=== PATIENT | male | born 1995 | race Caucasian/White ===

== ENCOUNTER 2017-01-23 22:27 | Emergency (ER) | payer BC, OTHER ==
[~2017-01-23] VITALS: Ht 182.9 cm; Wt 100.0 kg
[~2017-01-23 22:27] MED LIST: CITA40 PO; TEST-25 XX
[2017-01-23 22:51] VITALS: BP 147/81; PULSE 92; RESP 16; TEMP 98.1; O2SAT 100
[2017-01-23] MEDS ORDERED: CITA40TA4 PO (22:57)
[2017-01-23] MEDS ORDERED: ADDE20 PO (22:57)
[2017-01-23 23:20] LABS: AUTOMATED NEUTROPHIL # 8.2 TH/MM3 (1.8-7.7); BASOPHIL % 0.4 % (0.0-2.0); EOSINOPHIL # 0.1 TH/MM3 (0-0.4); EOSINOPHIL % 0.6 % (0.0-4.0); HEMATOCRIT 49.8 % (39.0-51.0); HEMO FLAGS DIFF FINAL; LYMPH % 19.8 % (9.0-44.0); LYMPHOCYTE # 2.2 TH/MM3 (1.0-4.8); MEAN CELL VOLUME 86.4 FL (80.0-100.0); MEAN CORPUSCULAR HEMOGLOBIN 30.1 PG (27.0-34.0); MEAN CORPUSCULAR HGB CONC 34.8 % (32.0-36.0); MONO % 4.5 % (0.0-8.0); NEUT % 74.7 % (16.0-70.0); PLATELET COUNT 268 TH/MM3 (150-450); RED BLOOD COUNT 5.76 MIL/MM3 (4.50-5.90); RED CELL DISTRIBUTION WIDTH 13.6 % (11.6-17.2)
--- NOTE | 2017-01-23 23:31 | PD ---
HPI Chief Complaint: Psychiatric Symptoms Time Seen by Provider: 22:37 Travel History International Travel<30 days: No Contact w/Intl Traveler<30days: No Traveled to known affect area: No History of Present Illness HPI Patient is a 21 year old male presents to the ER under BA by law enforcement. Patient is accompanied by his mother and father. Patient states that he got drunk tonight and just had a momentary breakdown wherein he cut his wrists with a card boxer. Patient states he feels fine now and has no complaints. Denies si/hi to me now. Mother and father state that the patient has a history of depression and has not been taking his citalopram and instead drinking. Apparently he threatened to shoot himself in the head to "end it all" today. This is what prompted them to get the police involved. Patient apparently was very dperessed, crying tonight. Mother and father are very concerned because they cannot get him to follow up. He is apparently very low functioning. PFSH Past Medical History ADD: Yes Anxiety: Yes Depression: Yes Diminished Hearing: No Immunizations Current: Yes Tetanus Vaccination: < 5 Years Influenza Vaccination: No Past Surgical History Abdominal Surgery: Yes (HERNIA) Social History Alcohol Use: Yes Tobacco Use: Yes (dip) Substance Use: No Allergies-Medications (Allergen,Severity, Reaction): Coded Allergies: No Known Allergies (Unverified , 02/24/12) Reported Meds & Prescriptions Reported Meds & Active Scripts Active Reported Adderall (Amphetamine-Dextroamphetamine) 20 Mg Tab 20 Mg PO DAILY Avoid late evening doses. Space doses at least 4 to 6 hours if more than once/day dosing. Citalopram (Citalopram Hydrobromide) 40 Mg Tab 40 Mg PO DAILY Review of Systems Except as stated in HPI: all other systems reviewed are Neg Physical Exam Narrative GENERAL: WD/WN in nad. SKIN: Warm and dry. Superficial serial abraisons to the volar aspect of the L wrist. No other wounds seen on his person. HEAD: Atraumatic. Normocephalic. EYES: Pupils equal and round. No scleral icterus. No injection or drainage. ENT: No nasal bleeding or discharge. Mucous membranes pink and moist. NECK: Trachea midline. No JVD. CARDIOVASCULAR: Regular rate and rhythm. RESPIRATORY: No accessory muscle use. Clear to auscultation. Breath sounds equal bilaterally. GASTROINTESTINAL: Abdomen soft, non-tender, nondistended. Hepatic and splenic margins not palpable. MUSCULOSKELETAL: Extremities without clubbing, cyanosis, or edema. No obvious deformities. NEUROLOGICAL: Awake and alert. No obvious cranial nerve deficits. Motor grossly within normal limits. Five out of 5 muscle strength in the arms and legs. Normal speech. PSYCHIATRIC: Mood: Fine, Affect happily intoxicated. Denies SI or HI to me. Data Data Last Documented VS Vital Signs Date Time Temp Pulse Resp B/P Pulse Ox O2 Delivery O2 Flow Rate FiO2 01/23/17 22:51 98.1 92 16 147/81 100 Orders Complete Blood Count With Diff (01/23/17 22:57) Comprehensive Metabolic Panel (01/23/17 22:57) Psych Screen (01/23/17 22:57) Drug Screen, Random Urine (01/23/17 22:57) Alcohol (Ethanol) (01/23/17 22:57) Labs Laboratory Tests Test 01/23/17 01/23/17 23:00 23:45 White Blood Count 11.0 TH/MM3 Red Blood Count 5.76 MIL/MM3 Hemoglobin 17.3 GM/DL Hematocrit 49.8 % Mean Corpuscular Volume 86.4 FL Mean Corpuscular Hemoglobin 30.1 PG Mean Corpuscular Hemoglobin 34.8 % Concent Red Cell Distribution Width 13.6 % Platelet Count 268 TH/MM3 Mean Platelet Volume 8.3 FL Neutrophils (%) (Auto) 74.7 % Lymphocytes (%) (Auto) 19.8 % Monocytes (%) (Auto) 4.5 % Eosinophils (%) (Auto) 0.6 % Basophils (%) (Auto) 0.4 % Neutrophils # (Auto) 8.2 TH/MM3 Lymphocytes # (Auto) 2.2 TH/MM3 Monocytes # (Auto) 0.5 TH/MM3 Eosinophils # (Auto) 0.1 TH/MM3 Basophils # (Auto) 0.0 TH/MM3 CBC Comment DIFF FINAL Differential Comment Sodium Level 143 MEQ/L Potassium Level 3.6 MEQ/L Chloride Level 103 MEQ/L Carbon Dioxide Level 27.5 MEQ/L Anion Gap 13 MEQ/L Blood Urea Nitrogen 9 MG/DL Creatinine 1.12 MG/DL Estimat Glomerular Filtration 81 ML/MIN Rate Random Glucose 97 MG/DL Calcium Level 9.2 MG/DL Total Bilirubin 0.7 MG/DL Aspartate Amino Transf 56 U/L (AST/SGOT) Alanine Aminotransferase 160 U/L (ALT/SGPT) Alkaline Phosphatase 123 U/L Total Protein 8.3 GM/DL Albumin 4.7 GM/DL Ethyl Alcohol Level 185 MG/DL Urine Opiates Screen NEG Urine Barbiturates Screen NEG Urine Amphetamines Screen POS Urine Benzodiazepines Screen NEG Urine Cocaine Screen NEG Urine Cannabinoids Screen NEG MDM Medical Decision Making Medical Screen Exam Complete: Yes Emergency Medical Condition: Yes Differential Diagnosis Self mutilation, suicidal ideation with planning, Depression, intoxication. Narrative Course Patient roomed in emergency Department, coming by his mother and father. Mother is Joseph who is a nurse here on [address] concerned because the patient was here in October under very similar circumstances, at that time the patient was seen and examined and released Jean immediately. He is followed by an outpatient psychiatrist Dr. Lambert and has been prescribed citalopram but will not take it. Patient has been drinking fairly heavily tonight and cut himself boxcars. According to his mother the patient was telling her that his best friend shot himself in the head and the patient is considering shooting himself in the head as well. There are guns in the house. Mother and father are both very concerned about the patient's well-being and that they cannot get him to follow up outpatient for psychiatric help. He appears to be treating himself with alcohol at home for his depression. He is here on Mccracken act by law enforcement today. Medically cleared for psychiatric evaluation and disposition. Mother and father would like to be called to give collateral history to psychiatrist in AM. Diagnosis Primary Impression: Depression Qualified Code: F32.9 - Depression, unspecified depression type Condition: Bernabe Solis MD Jan 23, 2017 23:31
[2017-01-23 23:33] LABS: ALT (GPT) 160 U/L (12-78); ANION GAP 13 MEQ/L (5-15); AST (GOT) 56 U/L (15-37); BICARBONATE 27.5 MEQ/L (21.0-32.0); BLOOD UREA NITROGEN 9 MG/DL (7-18); CHLORIDE 103 MEQ/L (98-107); GLOMERULAR FILTRATION RATE 81 ML/MIN (>89); POTASSIUM 3.6 MEQ/L (3.5-5.1); SODIUM (NA) 143 MEQ/L (136-145)
[2017-01-23 23:36] LABS: ALKALINE PHOSPHATASE 123 U/L (45-117); TOTAL BILIRUBIN ADULT 0.7 MG/DL (0.2-1.0)
[2017-01-24 00:24] LABS: AMPHETAMINE, URINE POS (NEG); BARBITURATES, URINE NEG (NEG); COCAINE, URINE NEG (NEG)
[2017-01-24 04:07] VITALS: BP 156/86; PULSE 110; RESP 16; O2SAT 99
[2017-01-24 06:19] VITALS: BP 147/81; PULSE 110; RESP 19; O2SAT 98
[2017-01-24 11:00] VITALS: BP 132/75; PULSE 100; RESP 18
--- NOTE | 2017-01-24 13:41 | PD ---
History of Present Illness Chief Complaint: Psychiatric Symptoms Time Seen by Provider: 13:30 Travel History International Travel<30 Days: No Contact w/Intl Traveler<30days: No Known affected area: No Legal Status Legal Status: Mccracken Act M[place]racken Act Signed By: Krys Parsons History of Present Illness: This is a 21-year-old male who was Mccracken acted by law enforcement last evening for symptoms of depression and suicidality. This physician reviewed the patient 's past history here and notes that he was Mccracken acted in the past and released without admission. Apparently the patient's mother works as a nurse at this facility and was disappointed the patient was released last time, due to the fact that the patient will not follow up. Emergency room room physician's note on this occasion suggest the patient is "very low functioning". However, this physician interviewed the patient and finds that he is a student at [employer] [place] He is no longer intoxicated and vehemently denies being suicidal or homicidal. He would like to go home and his cognition is adequate for him to make informed decisions. Due to the fact the patient made these previous statements in the state of intoxication and is no longer intoxicated, denying all intention to harm himself or others, this physician feels he does not meet Mccracken act criteria or hospital admission criteria. His refusal to follow up with psychiatric treatment according to family members, is not an adequate reason to admit him to the hospital at this time. As patient is legally a competent adult , his decisions in this manner cannot be ignored. At this time the patient is calm, pleasant, cooperative, respectful and making good sense. He shows no evidence of suicidal or homicidal ideation, plan or behavior. He shows no evidence of psychotic thinking. PFSH Past Medical History Medical History: Denies Significant Hx ADD: Yes Anxiety: Yes Depression: Yes Diminished Hearing: No Immunizations Current: Yes Tetanus Vaccination: < 5 Years Influenza Vaccination: No Past Surgical History Abdominal Surgery: Yes (HERNIA) Psychiatric History Psychiatric History Hx Psychiatric Treatment: HX OF DEPRESSION, ANXIETY AND ADD. LAST [facility] ADMISSION 11/19/2016 FOR ALCOHOL INDUCED MOOD DISORDER. History of Inpatient Treatment: No Guns or firearms in home: No Social History Patient positive for amphetamines due to taking stimulants for attention deficit disorder. Hx Alcohol Use: Yes Hx Tobacco Use: Yes (dip) Hx Substance Use: Yes Substance Use Type: Alcohol, Amphetamines-Stimulants, Nicotine/Cigarettes Hx of Substance Use Treatment: No Allergies-Medications (Allergen,Severity, Reaction): Coded Allergies: No Known Allergies (Unverified , 02/24/12) Reported Meds & Prescriptions Reported Meds & Active Scripts Active Reported Adderall (Amphetamine-Dextroamphetamine) 20 Mg Tab 20 Mg PO DAILY Avoid late evening doses. Space doses at least 4 to 6 hours if more than once/day dosing. Citalopram (Citalopram Hydrobromide) 40 Mg Tab 40 Mg PO DAILY Review of Systems ROS Limitations: Clinical Condition Except as stated in HPI: all other systems reviewed are Neg Exam Alert: Yes [place]: Person, Place, Date, Situation Mood: Calm Affect: Euthymic Speech: Clear, Logical Eye Contact: Normal Memory Intact: Immediate, Recent, Remote Delusions: No Insight/Judgement Patient's insight and judgment appears to be adequate when he is not drinking. This physician is unable to hospitalize him and he should be Marchman acted by family if they feel that his drinking is causing him significant harm. [facility] Medical Decision Making Medical Record Reviewed: Yes Assessment/Plan Patient is being released as he no longer meets Mccracken act criteria and does not meet admission criteria. This physician feels if the family feels the patient acts erratically due to alcohol use or abuse, he should be [place]man acted by them. Orders Complete Blood Count With Diff (01/23/17 22:57) Comprehensive Metabolic Panel (01/23/17 22:57) Psych Screen (01/23/17 22:57) Drug Screen, Random Urine (01/23/17 22:57) Alcohol (Ethanol) (01/23/17 22:57) Diet Regular Basic (01/24/17 Breakfast) Diet Regular Basic (01/24/17 Lunch) Results Vital Signs Date Time Temp Pulse Resp B/P Pulse Ox O2 Delivery O2 Flow Rate FiO2 01/24/17 11:00 100 18 132/75 Room Air 01/24/17 06:19 110 19 147/81 98 Room Air 01/24/17 04:07 110 16 156/86 99 Room Air 01/23/17 22:51 98.1 92 16 147/81 100 Laboratory Tests Test 01/23/17 01/23/17 23:00 23:45 White Blood Count 11.0 Red Blood Count 5.76 Hemoglobin 17.3 Hematocrit 49.8 Mean Corpuscular Volume 86.4 Mean Corpuscular Hemoglobin 30.1 Mean Corpuscular Hemoglobin 34.8 Concent Red Cell Distribution Width 13.6 Platelet Count 268 Mean Platelet Volume 8.3 Neutrophils (%) (Auto) 74.7 Lymphocytes (%) (Auto) 19.8 Monocytes (%) (Auto) 4.5 Eosinophils (%) (Auto) 0.6 Basophils (%) (Auto) 0.4 Neutrophils # (Auto) 8.2 Lymphocytes # (Auto) 2.2 Monocytes # (Auto) 0.5 Eosinophils # (Auto) 0.1 Basophils # (Auto) 0.0 CBC Comment DIFF FINAL Differential Comment Sodium Level 143 Potassium Level 3.6 Chloride Level 103 Carbon Dioxide Level 27.5 Anion Gap 13 Blood Urea Nitrogen 9 Creatinine 1.12 Estimat Glomerular Filtration 81 Rate Random Glucose 97 Calcium Level 9.2 Total Bilirubin 0.7 Aspartate Amino Transf 56 (AST/SGOT) Alanine Aminotransferase 160 (ALT/SGPT) Alkaline Phosphatase 123 Total Protein 8.3 Albumin 4.7 Ethyl Alcohol Level 185 Urine Opiates Screen NEG Urine Barbiturates Screen NEG Urine Amphetamines Screen POS Urine Benzodiazepines Screen NEG Urine Cocaine Screen NEG Urine Cannabinoids Screen NEG Diagnosis Primary Impression: Depression Additional Impression: Adjustment disorder with mixed disturbance of emotions and conduct Condition: Stable Problem Qualifiers Primary Impression: Depression Qualified Code: F32.9 - Depression, unspecified depression type Harsh Galvez MD Jan 24, 2017 13:41
[2017-01-24 13:54] VITALS: BP 132/75; RESP 18; O2SAT 100
== END 2017-01-24 15:09 | disposition home or self-care (01) ==
LOC: NEPA 22:27 → NEPJ 01-24 15:09
DX: F32.9 Major depressive disorder, single episode, unspecified (principal); F43.25 Adjustment disorder with mixed disturbance of emotions and conduct
CPT/HCPCS: 80053; 80307; 80320; 85025; 99285